=== PATIENT | female | born 1980 ===

== ENCOUNTER 2016-09-29 10:13 | Emergency (ER) | payer OTHER ==
[2016-09-29 11:11] VITALS: BP 163/93
--- NOTE | 2016-09-29 11:27 | UC ---
Throat Pain/Nasal Derek HPI - HPI Summary HPI Summary: ST started last night. 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 No fever. Headache, body aches, general malaise. No congestion or cough. No rash. - History of Current Complaint Chief Complaint: UCRespiratory Stated Complaint: SORE THROAT Time Seen by Provider: 09/29/16 11:10 Hx Obtained From: Patient Hx Last Menstrual Period: 09/27/16 Onset/Duration: Sudden Onset, Lasting Days - 1 Severity: Mild Cough: None Associated Signs & Symptoms: Positive: Dysphagia. Negative: FB Sensation, Drooling, Hoarseness, Sinus Discomfort, Nasal Discharge, Fever, Vomiting, Rash - Epiglottits Risk Factors Epiglottis Risk Factors: Sudden Onset - Allergies/Home Medications Allergies/Adverse Reactions: Allergies Allergy/AdvReac Type Severity Reaction Status Date / Time No Known Allergies Allergy Verified 09/29/16 11:05 PMH/Surg Hx/FS Hx/Imm Hx Previously Healthy: Yes - Surgical History Surgical History: Yes Surgery Procedure, Year, and Place: C-SECTIONS TWO - Family History Known Family History: Positive: Hypertension - Social History Occupation: Employed Full-time - teacher of the handicapped Lives: With Family Alcohol Use: Occasionally Substance Use Type: None Smoking Status (MU): Never Smoked Tobacco Review of Systems Constitutional: Negative Skin: Negative Eyes: Negative ENT: Sore Throat Respiratory: Negative Cardiovascular: Negative Gastrointestinal: Negative Genitourinary: Negative Motor: Negative Neurovascular: Negative Musculoskeletal: Myalgia Neurological: Headache Psychological: Negative All Other Systems Reviewed And Are Negative: Yes Physical Exam Triage Information Reviewed: Yes Appearance: Well-Appearing, No Pain Distress, Well-Nourished Vital Signs: Initial Vital Signs Temp 98.2 F 09/29/16 11:05 Pulse 82 09/29/16 11:05 Resp 18 09/29/16 11:05 BP 163/93 09/29/16 11:05 Pulse Ox 100 09/29/16 11:05 Vital Signs Reviewed: Yes Eye Exam: Normal Eyes: Positive: Conjunctiva Clear ENT: Positive: Pharyngeal erythema, Tonsillar swelling, Other:. Negative: Tonsillar exudate, Trismus Neck exam: Normal Neck: Positive: Supple Respiratory Exam: Normal Respiratory: Positive: Lungs clear Cardiovascular Exam: Normal Musculoskeletal Exam: Normal Neurological Exam: Normal Psychological Exam: Normal Skin Exam: Normal Diagnostics - Laboratory Diagnostic Studies Completed/Ordered: Strep pos Throat Pain/Nasal Course/Dx - Differential Dx/Diagnosis Provider Diagnoses: Strep pharyngitis Discharge - Discharge Plan Condition: Stable Disposition: HOME Prescriptions: RX: Amoxicillin (*) 875 mg PO BID #20 tab Patient Education Materials: Strep Throat (ED) Referrals: Wesly Read MD [Primary Care Provider] -
== END 2016-09-29 11:56 | disposition home or self-care (01) ==
LOC: UCCORT 10:13
DX: J02.0 Streptococcal pharyngitis (principal); B95.5 Unspecified streptococcus as the cause of diseases classified elsewhere
CPT/HCPCS: 87651; 99202; G0463

== ENCOUNTER 2017-02-06 17:35 | Emergency (ER) | payer OTHER ==
[2017-02-06 18:44] VITALS: BP 165/113
--- NOTE | 2017-02-06 19:07 | UC ---
General HPI - HPI Summary HPI Summary: BUG BITE, BUG UNKNOWN, CONCERN FOR POSSIBLE TICK BITEON RIGHT ARM. RIGHT ARM HAS SMALL AREA OF REDNESS, AND SWELLING THAT ITCHES. ALSO HAS HAD COLD 2 WEEKS AGO AND STILL HAS OCCASIONAL COUGH. WOULD LIKE TO HAVE LUNGS LISTENED TO. - History of Current Complaint Chief Complaint: UCSkin Stated Complaint: TICK Time Seen by Provider: 02/06/17 18:36 Hx Obtained From: Patient Onset/Duration: Sudden Onset, Lasting Days, Lasting Weeks, Still Present Onset Severity: Mild Current Severity: Mild Associated Signs & Symptoms: Negative: Fever - Allergy/Home Medications Allergies/Adverse Reactions: Allergies Allergy/AdvReac Type Severity Reaction Status Date / Time No Known Allergies Allergy Verified 02/06/17 18:43 PMH/Surg Hx/FS Hx/Imm Hx Previously Healthy: Yes - Surgical History Surgical History: Yes Surgery Procedure, Year, and Place: [facility] - Family History Known Family History: Positive: Hypertension - Social History Occupation: Employed Full-time Lives: With Family Alcohol Use: Occasionally Substance Use Type: None Smoking Status (MU): Never Smoked Tobacco Review of Systems Constitutional: Negative Skin: Rash Eyes: Negative ENT: Negative Respiratory: Cough Cardiovascular: Negative Gastrointestinal: Negative Genitourinary: Negative Motor: Negative Neurovascular: Negative Musculoskeletal: Negative Neurological: Negative Psychological: Negative All Other Systems Reviewed And Are Negative: Yes Physical Exam Triage Information Reviewed: Yes Appearance: Well-Appearing, No Pain Distress Vital Signs: Initial Vital Signs Temp 99.6 F 02/06/17 18:33 Pulse 70 02/06/17 18:33 Resp 18 02/06/17 18:33 BP 165/113 02/06/17 18:33 Pulse Ox 100 02/06/17 18:33 Vital Signs Reviewed: Yes Eye Exam: Normal ENT Exam: Normal ENT: Positive: Normal ENT inspection, Hearing grossly normal, Pharynx normal, TMs normal Dental Exam: Normal Neck exam: Normal Neck: Positive: Supple, Nontender, No Lymphadenopathy Respiratory Exam: Normal Respiratory: Positive: Chest non-tender, Lungs clear, Normal breath sounds, No respiratory distress, No accessory muscle use Cardiovascular Exam: Normal Cardiovascular: Positive: RRR, No Murmur, Pulses Normal Abdominal Exam: Normal Musculoskeletal Exam: Normal Musculoskeletal: Positive: Strength Intact, ROM Intact Neurological Exam: Normal Psychological Exam: Normal Skin: Positive: rashes - 2CM X 2CM RASH ON RIGHT FOREARM Course/Dx - Differential Dx - Multi-Symptom Differential Diagnoses: Metabolic Abnormality, Other Provider Diagnoses: INSECT BITE; UPPER RESPIRATORY INFECTION Discharge - Discharge Plan Condition: Stable Disposition: HOME Prescriptions: DOXYcycline CAP(*) [DOXYcycline 100MG CAP(*)] 200 mg PO ONCE #2 cap Patient Education Materials: Insect Bite or Sting (ED), Tick Bite (ED), Upper Respiratory Infection (ED) Referrals: Marcia Harper MD [Primary Care Provider] - Images Front/Back of Body, Lg ([place]): 1 - RASH HERE
== END 2017-02-06 19:04 | disposition home or self-care (01) ==
LOC: UCCORT 17:35
DX: S50.861A Insect bite (nonvenomous) of right forearm, initial encounter (principal); W57.XXXA Bitten or stung by nonvenomous insect and other nonvenomous arthropods, initial encounter; Y93.9 Activity, unspecified; Y92.9 Unspecified place or not applicable; J06.9 Acute upper respiratory infection, unspecified
CPT/HCPCS: 99212; G0463

== ENCOUNTER 2017-07-27 09:54 | Emergency (ER) | payer BC, OTHER ==
--- NOTE | 2017-07-27 11:48 | UC ---
UC General HPI - HPI Summary HPI Summary: 1. sore thraot and URI symptoms for over 1 week. 2. Recent fall, now has had intermittent back pain, mostly dull, sometimes very painful. urinary symptoms present. - History of Current Complaint Chief Complaint: UCGeneralIllness Stated Complaint: COLD SYMPTOMS/KIDNEY STONE Time Seen by Provider: 07/27/17 11:37 Hx Obtained From: Patient Hx Last Menstrual Period: 07/09/17 Onset/Duration: Sudden Onset, Lasting Days Timing: Constant Onset Severity: Moderate Current Severity: Moderate Associated Signs & Symptoms: Positive: Back Pain, Cough, Dysuria, Headache - Allergy/Home Medications Allergies/Adverse Reactions: Allergies Allergy/AdvReac Type Severity Reaction Status Date / Time No Known Allergies Allergy Verified 07/27/17 11:15 Home Medications: Home Medications Ibuprofen TAB* [Advil TAB*] 800 mg PO Q8HR PRN 07/27/17 [History Confirmed 07/27] PMH/Surg Hx/FS Hx/Imm Hx Previously Healthy: Yes - Surgical History Surgical History: Yes Surgery Procedure, Year, and Place: C-Sections, 2006 2008, [place] and [place] - Family History Known Family History: Positive: Hypertension - Social History Alcohol Use: Occasionally Substance Use Type: None Smoking Status (MU): Former Smoker Length of Time of Smoking/Using Tobacco: "Varied" amounts for 8 Years When Did the Patient Quit Smoking/Using Tobacco: ~2001 - Immunization History Most Recent Influenza Vaccination: Not the Season Review of Systems Constitutional: Negative Skin: Negative Eyes: Negative ENT: Sore Throat, Ear Ache, Sinus Congestion Respiratory: Cough Cardiovascular: Negative Gastrointestinal: Negative Genitourinary: Dysuria, Hematuria Motor: Negative Neurovascular: Negative Musculoskeletal: Negative Neurological: Headache Psychological: Negative Is Patient Immunocompromised?: No All Other Systems Reviewed And Are Negative: Yes Physical Exam Triage Information Reviewed: Yes Appearance: Well-Nourished, Ill-Appearing, Pain Distress Vital Signs: Initial Vital Signs Temp 98.5 F 07/27/17 11:13 Pulse 96 07/27/17 11:13 Resp 16 07/27/17 11:13 BP 141/108 07/27/17 11:13 Pulse Ox 100 07/27/17 11:13 Vital Signs Reviewed: Yes Eye Exam: Normal ENT: Positive: Pharyngeal erythema, Tonsillar swelling, Tonsillar exudate Dental Exam: Normal Neck exam: Normal Respiratory Exam: Normal Respiratory: Positive: Chest non-tender, Lungs clear, Normal breath sounds Cardiovascular Exam: Normal Cardiovascular: Positive: RRR, No Murmur, Pulses Normal Abdominal Exam: Normal Abdomen Description: Positive: Nontender, No Organomegaly, Soft, CVA Tenderness (L) - pos Bowel Sounds: Positive: Present Musculoskeletal Exam: Normal Musculoskeletal: Positive: Strength Intact, ROM Intact, No Edema Neurological Exam: Normal Neurological: Positive: Alert, Muscle Tone Normal, Fatigued Psychological Exam: Normal Skin Exam: Normal Course/Dx - Course Course Of Treatment: hx obtained, exam performed, meds reviewed, CT obtained, obstructive kidney stone noted, rapid strep obtained. - Differential Dx - Multi-Symptom Provider Diagnoses: obstructive renal stone in left ureter. right renal stone Discharge - Discharge Plan Condition: Stable Disposition: HOME Patient Education Materials: Kidney Stones (ED) Referrals: Marcia Harper MD [Primary Care Provider] - Moreno Wilkins MD [Medical Doctor] - Additional Instructions: 1. Follow up with urology, call tomorrow for an appointment. 2. If your pain becomes worse, urination decreases or you develop a fever follow up in the ER immediately.
--- NOTE | 2017-07-27 12:33 | RAD ---
INDICATION: Left flank pain COMPARISON: None TECHNIQUE: Noncontrast axial source images were acquired from the level hemidiaphragms to the symphysis pubis as part of CT imaging for renal stone. Lung bases: The lung bases are clear. Liver: The liver is normal in size. Noncontrast imaging shows no evidence of a hepatic mass or ductal dilatation. Gallbladder: There are no calcified gallstones. There is no evidence of wall thickening or pericholecystic fluid.. Spleen: The spleen is normal in size. The noncontrast CT appearance is normal. Pancreas: Noncontrast imaging shows no pancreatic mass or ductal dilitation. Adrenal glands: No masses are identified. Kidneys/Bladder: There is a 5 mm left UVJ calculus producing moderate left-sided hydronephrosis and hydroureter. The additional tiny nonobstructive calculi in each kidney which measure up to 3 mm. The bladder is otherwise normal. Adenopathy: There is no evidence of intraperitoneal or retroperitoneal adenopathy. Evaluation is limited without oral contrast. Fluid collections: There is trace free fluid in the cul-de-sac. Vessels: The aorta and iliac vessels are normal in caliber. There are no significant atherosclerotic changes. The IVC appears normal Pelvic organs: The uterus and adnexa appear normal GI tract: Evaluation of the bowel is limited without oral contrast. The stomach, small bowel, and lower GI tract appear grossly normal. There are no obstructive findings. The appendix is visualized and appears normal. Soft tissues: No soft tissue abnormalities of the extraperitoneal abdomen or pelvis are identified. Osseous structures: There are no acute osseous findings. IMPRESSION: BILATERAL NEPHROLITHIASIS WITH AN OBSTRUCTIVE 5 MM LEFT UPJ CALCULUS
[2017-07-27 13:02] VITALS: BP 178/114
== END 2017-07-27 13:05 | disposition home or self-care (01) ==
LOC: UCCORT 09:54
DX: N20.0 Calculus of kidney (principal); J02.9 Acute pharyngitis, unspecified; R05 Cough; R51 Headache; Z32.02 Encounter for pregnancy test, result negative; Z87.891 Personal history of nicotine dependence
CPT/HCPCS: 74176; 81003; 84702; 87651; 99212; G0463